=== PATIENT | male | born 1985 | race Caucasian/White ===

== ENCOUNTER 2018-02-02 09:35 | Emergency (ER) | payer MEDICAID ==
[~2018-02-02] VITALS: Ht 185.4 cm; Wt 79.1 kg
[~2018-02-02 09:35] MED LIST: SERT50TA PO
[2018-02-02] MEDS ORDERED: ALBUTEROL/IPRATROPIUM 2.5MG/0.5MG, 3 ML NPPB ONE (10:30)
[2018-02-02] MEDS ORDERED: ALBUTEROL/IPRATROPIUM 2.5MG/0.5MG, 3 ML ONE (10:34)
[2018-02-02 11:03] VITALS: BP 118/69
== END 2018-02-02 11:33 | disposition home or self-care (01) ==
LOC: ED 11:27
DX: J06.9 Acute upper respiratory infection, unspecified (principal); J45.909 Unspecified asthma, uncomplicated; F17.200 Nicotine dependence, unspecified, uncomplicated
CPT/HCPCS: 71046; 93005; 94640; 99284; J7620

== ENCOUNTER 2018-09-12 16:26 | Emergency (ER) | payer MEDICAID ==
[~2018-09-12] VITALS: Ht 185.4 cm; Wt 81.3 kg
[2018-09-12 16:39] VITALS: BP 127/75
[2018-09-12] MEDS ORDERED: HYDROcodone/APAP 5/325 TABLET PO ONE (18:00)
[2018-09-12] MEDS ORDERED: HYDROcodone/APAP 5/325 TABLET ONE (18:19)
== END 2018-09-12 18:24 | disposition home or self-care (01) ==
LOC: ED 17:32
DX: S02.5XXA Fracture of tooth (traumatic), initial encounter for closed fracture (principal); S30.0XXA Contusion of lower back and pelvis, initial encounter; J45.909 Unspecified asthma, uncomplicated; F17.200 Nicotine dependence, unspecified, uncomplicated; W18.30XA Fall on same level, unspecified, initial encounter; Y92.328 Other athletic field as the place of occurrence of the external cause; Y93.79 Activity, other specified sports and athletics; Y99.8 Other external cause status
CPT/HCPCS: 70486; 99284

== ENCOUNTER 2018-12-02 13:06 | Emergency (ER) | payer SELFPAY ==
[~2018-12-02] VITALS: Ht 185.4 cm; Wt 77.7 kg
--- NOTE | 2018-12-02 13:45 | NUR ---
pt to ed for multiple scratches and lesions with and without scabs and eschars throughout body. 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 connected to [email or web address]. edmd assessment complete. awaiting orders.
[2018-12-02] MEDS ORDERED: LIDOCAINE-MPF 1%, 5ML ONE (13:52)
[2018-12-02] MEDS ORDERED: IBUPROFEN 200 MG TABLET ONE (13:52)
[2018-12-02] MEDS ORDERED: DIPH,PERTUSS(ACELL),TET VAC/PF 0.5 ML IM-VACC ONE ×2 (13:52→14:00)
[2018-12-02] MEDS ORDERED: CEPHALEXIN 500 MG CAPSULE ONE (13:52)
[2018-12-02] MEDS ORDERED: SULFAMETH./TRIMETHOPRIM DS 800MG/160MG TABLET ONE (13:52)
[2018-12-02 13:59] LABS: BASOPHILS # (AUTO) 0.05 x10^3/uL (0-0.1); BASOPHILS % (AUTO) 0 % (0-1); EOSINOPHILS # (AUTO) 0.24 x10^3/uL (0-0.4); EOSINOPHILS % (AUTO) 2 % (1-7); LYMPHOCYTES # (AUTO) 2.07 x10^3/uL (1-3.4); LYMPHOCYTES % (AUTO) 16 % (22-44); MD NO; MEAN CORPUSCULAR HEMOGLOBIN 30.9 pg (27.5-34.5); MEAN CORPUSCULAR HGB CONC 34.3 g/dL (33.2-36.2); MEAN CORPUSCULAR VOLUME 90.1 fL (81-97); MEAN PLATELET VOLUME 7.6 fL (7.4-10.4); MONOCYTES # (AUTO) 0.71 x10^3/uL (0.2-0.8); MONOCYTES % (AUTO) 6 % (2-9); NEUTROPHILS % (AUTO) 76 % (42-75); PLATELET COUNT 426 x10^3/uL (130-400); RED BLOOD COUNT 5.33 x10^6/uL (4.38-5.82); RED CELL DISTRIBUTION WIDTH 13.4 % (9.4-14.8)
[2018-12-02] MEDS ORDERED: LIDOCAINE 1%-EPI 1:100K, 20ML SQ ONE (14:00)
[2018-12-02] MEDS ORDERED: SULFAMETH./TRIMETHOPRIM DS 800MG/160MG TABLET PO ONE (14:00)
[2018-12-02] MEDS ORDERED: CEPHALEXIN 500 MG CAPSULE PO ONE (14:00)
[2018-12-02] MEDS ORDERED: IBUPROFEN 600 MG TABLET PO ONE (14:00)
[2018-12-02 14:10] LABS: ALBUMIN 3.6 g/dL (3.4-5.0); ANION GAP 5 mmol/L (5-15); CALCIUM 9.2 mg/dL (8.5-10.1); CHLORIDE 107 mmol/L (98-107)
[2018-12-02 14:55] VITALS: BP 113/71
== END 2018-12-02 15:25 | disposition home or self-care (01) ==
LOC: ED 14:22
DX: S61.213A Laceration without foreign body of left middle finger without damage to nail, initial encounter (principal); L03.012 Cellulitis of left finger; L03.116 Cellulitis of left lower limb; J45.909 Unspecified asthma, uncomplicated; F17.200 Nicotine dependence, unspecified, uncomplicated; X58.XXXA Exposure to other specified factors, initial encounter; Y93.89 Activity, other specified; Y92.89 Other specified places as the place of occurrence of the external cause; Y99.8 Other external cause status
CPT/HCPCS: 29130; 36415; 80048; 82040; 85025; 90471; 90715

== ENCOUNTER 2019-01-07 11:24 | Emergency (ER) | payer SELFPAY ==
[~2019-01-07] VITALS: Ht 185.4 cm; Wt 80.0 kg
[2019-01-07 11:55] VITALS: BP 121/87
[2019-01-07] MEDS ORDERED: HYDROcodone/APAP 5/325 TABLET PO ONE (13:00)
[2019-01-07] MEDS ORDERED: SODIUM CHLORIDE FLUSH 10ML SYR IVF ONE (13:00)
[2019-01-07] MEDS ORDERED: HYDROcodone/APAP 5/325 TABLET ONE (13:17)
[2019-01-07 13:44] LABS: BASOPHILS # (AUTO) 0.06 x10^3/uL (0-0.1); BASOPHILS % (AUTO) 1 % (0-1); EOSINOPHILS # (AUTO) 0.16 x10^3/uL (0-0.4); EOSINOPHILS % (AUTO) 1 % (1-7); LYMPHOCYTES # (AUTO) 1.78 x10^3/uL (1-3.4); LYMPHOCYTES % (AUTO) 15 % (22-44); MD NO; MEAN CORPUSCULAR HGB CONC 34.3 g/dL (33.2-36.2); MEAN CORPUSCULAR VOLUME 90.5 fL (81-97); MONOCYTES # (AUTO) 0.85 x10^3/uL (0.2-0.8); MONOCYTES % (AUTO) 7 % (2-9); NEUTROPHILS # (AUTO) 8.84 x10^3/uL (1.8-6.8); NEUTROPHILS % (AUTO) 76 % (42-75); PLATELET COUNT 311 x10^3/uL (130-400); RED BLOOD COUNT 5.14 x10^6/uL (4.38-5.82); RED CELL DISTRIBUTION WIDTH 13.3 % (9.4-14.8)
[2019-01-07 13:47] LABS: ALBUMIN 4.1 g/dL (3.4-5.0); ANION GAP 10 mmol/L (5-15); CHLORIDE 107 mmol/L (98-107)
[2019-01-07] MEDS ORDERED: OMNIPAQUE 350 MG/ML, 75ML BOTTLE ONE (14:25)
[2019-01-07] MEDS ORDERED: CEFAZOLIN 1,000 MG ONE (15:59)
[2019-01-07] MEDS ORDERED: CEFAZOLIN 1,000 MG IM ONE (16:00)
== END 2019-01-07 16:15 | disposition home or self-care (01) ==
LOC: ED 15:55
DX: K04.7 Periapical abscess without sinus (principal); F17.200 Nicotine dependence, unspecified, uncomplicated
CPT/HCPCS: 36415; 70487; 80048; 82040; 85025; 96372; 99284; J0690; Q9967

== ENCOUNTER 2020-03-01 04:21 | Emergency (ER) | payer MEDICAID ==
[~2020-03-01] VITALS: Ht 185.4 cm; Wt 79.0 kg
[2020-03-01 04:29] VITALS: BP 111/64
--- NOTE | 2020-03-01 06:22 | NUR ---
NIL [id number]
--- NOTE | 2020-03-01 06:34 | NUR ---
NIL X 2
--- NOTE | 2020-03-01 06:41 | NUR ---
NIL X 3
== END 2020-03-01 06:42 | disposition left against medical advice (07) ==
LOC: ED 04:51
DX: R07.81 Pleurodynia (principal); Z53.21 Procedure and treatment not carried out due to patient leaving prior to being seen by health care provider

== ENCOUNTER 2020-08-29 02:35 | Emergency (ER) | payer MEDICAID ==
[~2020-08-29] VITALS: Ht 182.9 cm; Wt 86.5 kg
[2020-08-29 03:31] VITALS: BP 134/80
== END 2020-08-29 03:34 | disposition home or self-care (01) ==
LOC: ED 03:25
DX: K04.7 Periapical abscess without sinus (principal); J45.909 Unspecified asthma, uncomplicated; F17.200 Nicotine dependence, unspecified, uncomplicated
CPT/HCPCS: 99283

== ENCOUNTER 2021-01-08 11:00 | Emergency (ER) | payer MEDICAID ==
[~2021-01-08] VITALS: Ht 188 cm; Wt 82.1 kg
[2021-01-08 11:03] VITALS: BP 123/86
[2021-01-08] MEDS ORDERED: LIDOCAINE-MPF 1%, 5ML INFIL ONE (12:30)
[2021-01-08] MEDS ORDERED: DIPH,PERTUSS(ACELL),TET VAC/PF 0.5 ML IM-VACC ONE ×2 (12:30→13:04)
--- NOTE | 2021-01-08 12:44 | NUR ---
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
--- NOTE | 2021-01-08 13:08 | NUR ---
APPROX 2 INCH LACERATION FOREARM. GOOD DISTAL CMS
[2021-01-08] MEDS ORDERED: LIDOCAINE-MPF 1%, 5ML ONE (13:24)
--- NOTE | 2021-01-08 14:27 | NUR ---
LACERATION REPAIRED AND CLEAN DRY DRESSING IN PLACE.
== END 2021-01-08 14:29 | disposition home or self-care (01) ==
LOC: ED 12:35
DX: S51.811A Laceration without foreign body of right forearm, initial encounter (principal); F17.210 Nicotine dependence, cigarettes, uncomplicated; W25.XXXA Contact with sharp glass, initial encounter; Y93.89 Activity, other specified; Y92.009 Unspecified place in unspecified non-institutional (private) residence as the place of occurrence of the external cause; Y99.8 Other external cause status
CPT/HCPCS: 12002; 90471; 90715